=== PATIENT | male | born 1945 | race African-American/Black ===

== ENCOUNTER 2016-06-21 18:29 | Emergency (ER) | payer OTHER ==
[~2016-06-21] VITALS: Ht 172.7 cm; Wt 150.0 kg
[2016-06-21 19:04] VITALS: BP 118/70; PULSE 52; RESP 18; TEMP 98.8; O2SAT 99
[2016-06-21 19:44] VITALS: BP 138/73; PULSE 55; RESP 14; TEMP 98.1; O2SAT 95
--- NOTE | 2016-06-21 20:12 | RADRPT ---
EXAM DATE/TIME: 06/21/2016 19:39 [facility] COMPARISON: No previous studies available for comparison. INDICATIONS : Chest pain. MEDICAL HISTORY : unobtainable SURGICAL HISTORY : unobtainable ENCOUNTER: Initial ACUITY: 1 day PAIN SCORE: 7/10 LOCATION: Bilateral upper chest FINDINGS: No evidence of focal infiltrate or effusion. Heart size is borderline. There appears to be mild centr al vascular congestion. CONCLUSION: Mild vascular congestion Rodney Torres MD on June 21, 2016 at 20:09 Board Certified Radiologist. This report was verified electronically.
--- NOTE | 2016-06-21 20:27 | PD ---
HPI Chief Complaint: General Weakness Time Seen by Provider: 19:27 Travel History International Travel<30 days: No Contact w/Intl Traveler<30days: No Traveled to known affect area: No History of Present Illness HPI This 70-year-old male presents to the emergency department complaining of weakness and fall. He reports he had a few drinks today, probably around 6 beers, when he began to feel dizzy. He fell. Once he fell he couldn't back up. A family member called the ambulance. is with him at the bedside but she was at work when this happened. She reports he has cirrhosis and shouldn't be drinking but continues to drink about 6 beers or so a day every day. He is pretty sleepy and not able to give much additional history. He states that he didn't get knocked out. He states that he otherwise had been feeling generally well and healthy. He does complain a little bit of pain in his belly now. He did start any medication for hepatitis C about 4 days ago. No other new medications. EMS responded to him and they report that initially on scene the low heart rate in the 40s and 50s. He is on medicine for his blood pressure but neither he nor his know what it is. History Past Medical History Narrative Medical Neuropathy Diabetes Hypertension Cirrhosis Hepatitis C Alcoholism Social History Tobacco Use: No Allergies-Medications (Allergen,Severity, Reaction): Coded Allergies: UNOBTAINABLE (Unverified , 06/21/16) Reported Meds & Prescriptions Reported Meds & Active Scripts Active Active Prescriptions or Reported Medications Unobtainable Review of Systems Except as stated in HPI: all other systems reviewed are Neg Physical Exam Narrative GENERAL: Well-appearing 70-year-old man, obese, sluggish, nontoxic. SKIN: Focused skin assessment warm/dry. HEAD: Normocephalic. On serial evidence of trauma. Was some tenderness in the back of the head. EYES: Pupils equal and round. No scleral icterus. No injection or drainage. ENT: No nasal bleeding or discharge. Mucous membranes pink and moist. NECK: Trachea midline. No midline tenderness. No step-offs or deformities. CARDIOVASCULAR: Regular rate and rhythm. No murmur appreciated. RESPIRATORY: No accessory muscle use. Clear to auscultation. Breath sounds equal bilaterally. GASTROINTESTINAL: Abdomen soft, non-tender, nondistended. Hepatic and splenic margins not palpable. MUSCULOSKELETAL: No obvious deformities. No edema. No evidence of injury. NEUROLOGICAL: Drowsy and sluggishly responsive. Will awaken to stimulus will answer questions appropriately. Luvox remedies. No focal deficits. Data Data Last Documented VS Vital Signs Date Time Temp Pulse Resp B/P Pulse Ox O2 Delivery O2 Flow Rate FiO2 06/21/16 22:34 58 14 140/68 98 Room Air 06/21/16 19:44 98.1 Orders Complete Blood Count With Diff (06/21/16 19:27) Comprehensive Metabolic Panel (06/21/16 19:27) Act Partial Throm Time (Ptt) (06/21/16 19:27) Prothrombin Time / Inr (Pt) (06/21/16 19:27) Ct Brain W/O Iv Contrast(Rout) (06/21/16 ) Chest, Single Ap (06/21/16 ) Alcohol (Ethanol) (06/21/16 19:27) Iv Access Insert/Monitor (06/21/16 19:27) Arterial Blood Gas (Abg) (06/21/16 ) Electrocardiogram (06/21/16 ) Resp Request For Service (06/21/16 ) Admit Order (Ed Use Only) (06/21/16 ) Labs Laboratory Tests Test 06/21/16 06/21/16 19:50 22:22 Blood Gas Puncture Site RT RADIAL Blood Gas Patient Temperature 98.6 Blood Gas HCO3 21 mmol/L Blood Gas Base Excess -3.9 mmol/L Blood Gas Oxygen Saturation 94 % Arterial Blood pH 7.33 Arterial Blood Partial 41 mmHg Pressure CO2 Arterial Blood Partial 84 mmHG Pressure O2 Arterial Blood Oxygen Content 15.0 Vol % Arterial Blood 0.9 % Carboxyhemoglobin Arterial Blood Methemoglobin 0.2 % Blood Gas Hemoglobin 11.2 G/DL Oxygen Delivery Device ROOM AIR Blood Gas Inspired Oxygen 21 % White Blood Count 6.2 TH/MM3 Red Blood Count 3.15 MIL/MM3 Hemoglobin 11.1 GM/DL Hematocrit 32.2 % Mean Corpuscular Volume 102.2 FL Mean Corpuscular Hemoglobin 35.4 PG Mean Corpuscular Hemoglobin 34.6 % Concent Red Cell Distribution Width 14.9 % Platelet Count 129 TH/MM3 Mean Platelet Volume 8.3 FL Neutrophils (%) (Auto) 43.0 % Lymphocytes (%) (Auto) 40.0 % Monocytes (%) (Auto) 14.2 % Eosinophils (%) (Auto) 2.8 % Basophils (%) (Auto) 0.0 % Neutrophils # (Auto) 2.7 TH/MM3 Lymphocytes # (Auto) 2.5 TH/MM3 Monocytes # (Auto) 0.9 TH/MM3 Eosinophils # (Auto) 0.2 TH/MM3 Basophils # (Auto) 0.0 TH/MM3 CBC Comment DIFF FINAL Differential Comment Prothrombin Time 12.7 SEC Prothromb Time International 1.1 RATIO Ratio Activated Partial 28.9 SEC Thromboplast Time Sodium Level 134 MEQ/L Potassium Level 4.3 MEQ/L Chloride Level 101 MEQ/L Carbon Dioxide Level 22.7 MEQ/L Anion Gap 10 MEQ/L Blood Urea Nitrogen 24 MG/DL Creatinine 2.06 MG/DL Estimat Glomerular Filtration 39 ML/MIN Rate Random Glucose 95 MG/DL Calcium Level 7.9 MG/DL Total Bilirubin 0.5 MG/DL Aspartate Amino Transf 24 U/L (AST/SGOT) Alanine Aminotransferase 16 U/L (ALT/SGPT) Alkaline Phosphatase 75 U/L Total Protein 8.0 GM/DL Albumin 2.9 GM/DL Ethyl Alcohol Level 181 MG/DL [facility] Medical Decision Making Medical Screen Exam Complete: Yes Emergency Medical Condition: Yes Interpretation(s) Head CT: Negative Chest: Mild vascular congestion My review of EKG: Sinus bradycardia rate of 55, normal axis, CO intervals prolonged at 205, some lateral T-wave flattening, nonspecific, no definite evidence of acute ischemia. LABS: ABG 7.33/41/84/21, base excess -3.9 CBC remarkable for mild anemia. CMP remarkable for mildly elevated BUN/creatinine. Alcohol 181 Differential Diagnosis Intoxication, head injury, symptomatic bradycardia, electrolyte abnormality, other Narrative Course Medical decision making INITIAL: 70-year-old man who presents to the emergency department complaining of dizziness and fall. Skin be related to intoxication and for some low heart rate. This probably secondary to blood pressure medications although it's unclear. He generally looks well. He sleepy but his states this is typical for him when he drinks. He complains of hitting his head vitals a significant evidence of trauma. We'll check CT head, chest x-ray, labs, EKG. Likely discharge if negative. Diagnosis Primary Impression: Alcohol intoxication Qualified Code: F10.120 - Alcohol intoxication, uncomplicated Additional Impressions: Fall Qualified Code: W19.XXXA - Fall, initial encounter Bradycardia Additional Instructions: Hold any blood pressure medications until you follow up with her primary physician due to low heart rate. Avoid alcohol. Return to the emergency department for any worsening headache, weakness, passing out, or any other new or worsening symptoms. Med/Other Pt SpecificInfo: No Change to Meds Scripts Unable to Obtain Active Prescriptions or Reported Meds Disposition: 01 DISCHARGE HOME Condition: Stable Herve Morgan MD Jun 21, 2016 20:27
--- NOTE | 2016-06-21 21:03 | RADRPT ---
EXAM DATE/TIME: 06/21/2016 20:15 [facility] COMPARISON: No previous studies available for comparison. INDICATIONS : Trauma. Fall. RADIATION DOSE: 45.10 CTDIvol (mGy) MEDICAL HISTORY : None SURGICAL HISTORY : None. ENCOUNTER: Initial ACUITY: 1 day PAIN SCALE: 2/10 LOCATION: cranial TECHNIQUE: Multiple contiguous axial images were obtained of the head. Using automated exposure control and adj ustment of the mA and/or kV according to patient size, radiation dose was kept as low as reasonably a chievable to obtain optimal diagnostic quality images. FINDINGS: CEREBRUM: The ventricles are normal for age. No evidence of midline shift, mass lesion, hemorrhage or acute in farction. No extra-axial fluid collections are seen. POSTERIOR FOSSA: The cerebellum and brainstem are intact. The 4th ventricle is midline. The cerebellopontine angle i s unremarkable. EXTRACRANIAL: The visualized portion of the orbits is intact. SKULL: The calvaria is intact. No evidence of skull fracture. CONCLUSION: No acute disease. Rodney Stafford MD on June 21, 2016 at 21:00 Board Certified Radiologist. This report was verified electronically.
[2016-06-21 21:25] VITALS: BP 132/70; PULSE 52; RESP 12; O2SAT 96
[2016-06-21 22:25] LABS: BLOOD GAS BASE EXCESS -3.9 mmol/L (-2-2); BLOOD GAS CARBOXYHEMOGLOBIN 0.9 % (0-4); BLOOD GAS HCO3 21 mmol/L (22-26); BLOOD GAS METHEMOGLOBIN 0.2 % (0-2); BLOOD GAS O2 HGB SATURATION 94 % (90-100); BLOOD GAS PCO2 41 mmHg (38-42); BLOOD GAS PO2 84 mmHG (61-120); BLOOD GAS TOTAL HGB 11.2 G/DL (12.0-16.0); CRITICAL VALUE NO; TEMP CORR TO 98.6
[2016-06-21 22:26] LABS: DRAW SITE RT RADIAL; FIO2 21 %; NUMBER OF ARTERIAL PUNCTURES 1; OXYGEN DEVICE ROOM AIR; STAT YES; ULNAR PULSE PRESENT
[2016-06-21 22:34] VITALS: BP 140/68; PULSE 58; RESP 14; O2SAT 98
[2016-06-21 22:59] LABS: AUTOMATED NEUTROPHIL # 2.7 TH/MM3 (1.8-7.7); EOSINOPHIL # 0.2 TH/MM3 (0-0.4); EOSINOPHIL % 2.8 % (0.0-4.0); HEMATOCRIT 32.2 % (39.0-51.0); HEMO FLAGS DIFF FINAL; LYMPHOCYTE # 2.5 TH/MM3 (1.0-4.8); MEAN CELL VOLUME 102.2 FL (80.0-100.0); MEAN CORPUSCULAR HEMOGLOBIN 35.4 PG (27.0-34.0); MEAN CORPUSCULAR HGB CONC 34.6 % (32.0-36.0); MONO % 14.2 % (0.0-8.0); PLATELET COUNT 129 TH/MM3 (150-450); RED BLOOD COUNT 3.15 MIL/MM3 (4.50-5.90); RED CELL DISTRIBUTION WIDTH 14.9 % (11.6-17.2); WHITE BLOOD COUNT 6.2 TH/MM3 (4.0-11.0)
[2016-06-21 23:11] LABS: APTT (PATIENT) 28.9 SEC (24.3-30.1); INTERNATIONAL NORMALIZED RATIO 1.1 RATIO; PROTHROMBIN TIME - PATIENT 12.7 SEC (9.8-11.6)
[2016-06-21 23:19] LABS: ALT (GPT) 16 U/L (12-78); ANION GAP 10 MEQ/L (5-15); AST (GOT) 24 U/L (15-37); BICARBONATE 22.7 MEQ/L (21.0-32.0); BLOOD UREA NITROGEN 24 MG/DL (7-18); CHLORIDE 101 MEQ/L (98-107); GLOMERULAR FILTRATION RATE 39 ML/MIN (>89); POTASSIUM 4.3 MEQ/L (3.5-5.1); SODIUM (NA) 134 MEQ/L (136-145)
[2016-06-21 23:21] LABS: ALKALINE PHOSPHATASE 75 U/L (45-117); TOTAL BILIRUBIN ADULT 0.5 MG/DL (0.2-1.0)
[2016-06-21 23:52] VITALS: BP 136/70; PULSE 60; RESP 12; O2SAT 99
--- NOTE | 2016-06-22 14:25 | EKG ---
Date Performed: 06/21/2016 Time Performed: 20:28:57 PTAGE: 70 years EKG: SINUS BRADYCARDIA MODERATE INTRAVENTRICULAR CONDUCTION DELAY NONSPECIFIC T-WAVE ABNORMALITY BORDERLINE ECG NO PREVIOUS TRACING DOCTOR: Nacho Castillo Interpretating Date/Time 06/22/2016 14:23:54
== END 2016-06-22 00:27 | disposition home or self-care (01) ==
LOC: NEPE 18:29
DX: F10.129 Alcohol abuse with intoxication, unspecified (principal); Y90.6 Blood alcohol level of 120-199 mg/100 ml; R00.1 Bradycardia, unspecified; R07.9 Chest pain, unspecified; I10 Essential (primary) hypertension; E11.9 Type 2 diabetes mellitus without complications; K74.60 Unspecified cirrhosis of liver; B19.20 Unspecified viral hepatitis C without hepatic coma; W18.30XA Fall on same level, unspecified, initial encounter; Y93.89 Activity, other specified; Y92.9 Unspecified place or not applicable; Y99.9 Unspecified external cause status
CPT/HCPCS: 36600; 70450; 71010; 80053; 80307; 82805; 85025; 85610; 85730; 93005